=== PATIENT | female | born 1960 | race Hispanic/Latino ===

== ENCOUNTER 2021-12-23 13:29 | Emergency (ER) | payer BC ==
[~2021-12-23] VITALS: Ht 165.1 cm; Wt 74.8 kg
[~2021-12-23 13:29] MED LIST: AZITHROMYC200 MG/5 M; BROMFED DM COU118 ML; CIPRO500 MG/5 M; CO-GESIC 5-5001 EACH PO; DIOVAN160 MG PO; DOC-Q-LACE100 MG PO; HUMALOG100 UNIT/3 SQ; LANTUS100 UNITS/; LOSARTAN-HCTZ1 EAC1; NOVOLOG MI100 UNIT/1; PRAVASTATIN SOD40 MG PO; PYRIDIUM200 MG PO
[2021-12-23] MEDS ORDERED: SODIUM CHLORIDE 0.9% 500ML 500 ML IV ONE (13:45)
[2021-12-23] MEDS ORDERED: ASPIRIN 81 MG CHEW TAB PO ONE (13:45)
[2021-12-23 14:05] LABS: BASOPHILS # (AUTO) 0.1 (0.0-0.1); BASOPHILS % 0.8 % (0.0-1.0); EOSINOPHILS # (AUTO) 0.2 (0.0-0.4); EOSINOPHILS % 2.2 % (0.0-6.0); HEMOGLOBIN 13.8 g/dL (12.0-16.0); LYMPHOCYTES # (AUTO) 1.9 (1.0-3.2); MEAN CORPUSCULAR HEMOGLOBIN 31.6 pg (28-32); MEAN CORPUSCULAR HGB CONC 32.9 g/dL (31-35); MEAN CORPUSCULAR VOLUME 96.1 fL (81-99); MONOCYTES # (AUTO) 0.5 (0.2-0.8); NEUTROPHILS # (AUTO) 4.6 (2.1-6.9); NEUTROPHILS % 63.9 % (38.7-80.0); PLATELET COUNT 237 x10e3/uL (140-360); RED BLOOD COUNT 4.37 x10e6/uL (3.6-5.1); RED CELL DISTRIBUTION WIDTH 12.1 % (11.7-14.4)
[2021-12-23 14:29] LABS: ALANINE AMINOTRANSFERASE 33 IU/L (0-55); ALBUMIN 3.7 g/dL (3.5-5.0); ALBUMIN/GLOBULIN RATIO 0.9 (0.8-2.0); ALKALINE PHOSPHATASE 85 IU/L (40-150); ANION GAP 13.3 mmol/L (8-16); BLOOD UREA NITROGEN 19 mg/dL (7-26); BUN/CREATININE RATIO 16 (6-25); CALCIUM 9.6 mg/dL (8.4-10.2); CARBON DIOXIDE 21 mmol/L (22-29); CHLORIDE 107 mmol/L (98-107); CREATINE KINASE 98 IU/L (29-168); CREATININE, SERUM 1.19 mg/dL (0.57-1.11); EST GLOMERULAR FILTRATION RATE 46 ML/MIN (60-); GLUCOSE 224 mg/dL (74-118); MAGNESIUM 2.1 MG/DL (1.3-2.1); POTASSIUM 4.3 mmol/L (3.5-5.1); SODIUM 137 mmol/L (136-145)
[2021-12-23 18:40] LABS: PARTIAL THROMBOPLASTIN TIME 25.7 seconds (23.8-35.5)
== END 2021-12-23 15:58 | disposition home or self-care (01) ==
LOC: ER 13:37
DX: R20.0 Anesthesia of skin (principal); R20.2 Paresthesia of skin; E11.65 Type 2 diabetes mellitus with hyperglycemia; I10 Essential (primary) hypertension; E78.5 Hyperlipidemia, unspecified
CPT/HCPCS: 36415; 70450; 71045; 80053; 82550; 82553; 83735; 84484; 85025; 85610; 85730; 93005; 99283; J7040

== ENCOUNTER → 2022-02-06 | Outpatient (CLI) | payer BC | LOC: MRI 09:30 | PROVIDERS: ATTEND Internal Medicine Cardiovascular Disease | DX: R06.02 Shortness of breath (principal); R55 Syncope and collapse | CPT/HCPCS: 70551 ==

== ENCOUNTER 2022-04-09 07:50 | Emergency (ER) | payer BC ==
[~2022-04-09] VITALS: Ht 165.1 cm; Wt 74.8 kg
[2022-04-09] MEDS ORDERED: HYDROCODONE/APAP 5MG-325MG TAB PO ONE (08:30)
[2022-04-09] MEDS ORDERED: DEXAMETHASONE SOD PHOS 10 MG/1 ML VIAL IM ONE (08:30)
[2022-04-09] MEDS ORDERED: PREDNISONE20 MG PO (08:54)
[2022-04-09] MEDS ORDERED: ULTRAM 50MG50 MG PO (08:54)
== END 2022-04-09 08:27 | disposition home or self-care (01) ==
LOC: ER 08:05
DX: M54.41 Lumbago with sciatica, right side (principal); I10 Essential (primary) hypertension; E11.9 Type 2 diabetes mellitus without complications; E78.5 Hyperlipidemia, unspecified; M54.9 Dorsalgia, unspecified; G89.29 Other chronic pain
CPT/HCPCS: 99282; J1100